=== PATIENT | male | born 1955 | race Caucasian/White ===

== ENCOUNTER 2024-01-23 19:13 | Emergency (ER) | payer OTHER, MEDICARE ==
[~2024-01-23] VITALS: Ht 157.5 cm; Wt 71.2 kg
[2024-01-23] MEDS ORDERED: FLO0.4C PO (20:27)
[2024-01-23] MEDS ORDERED: LEVO-65 PO (20:27)
[2024-01-23 21:05] VITALS: BP 120/83; PULSE 92; RESP 18; TEMP 98.7; O2SAT 98
== END 2024-01-23 21:07 | disposition home or self-care (01) ==
LOC: ER 19:14
DX: R33.9 Retention of urine, unspecified (principal)
CPT/HCPCS: 51702; 99284; A4314; A4358

== ENCOUNTER 2024-01-24 12:54 | Emergency (ER) | payer OTHER, MEDICARE ==
[~2024-01-24] VITALS: Ht 157.5 cm; Wt 71.0 kg
[~2024-01-24 12:54] MED LIST: FLO0.4C PO; LEVO-65 PO
[2024-01-24 12:59] VITALS: TEMP 97.9
[2024-01-24 13:22] LABS: CLARITY,URINE CLOUDY (Clear); COLOR,URINE RED (Yellow); UA COLLECTION TYPE FOLEY CATH
[2024-01-24 13:38] LABS: RBC,URINE TNTC /HPF (0-2); SQUAMOUS EPITHELIAL CELL,UR FEW /LPF (FEW)
[2024-01-24 13:39] LABS: BACTERIA,URINE NONE SEEN /HPF (Neg); WBC,URINE 0-4 /HPF (0-4)
[2024-01-24 15:07] LABS: BASOPHILS # (AUTO) 0.1 X10'3 (0-0.2); EOSINOPHILS # (AUTO) 0.2 X10'3 (0-0.9); EOSINOPHILS % (AUTO) 2.4 % (0-6); HEMATOCRIT 51.2 % (42.0-52.0); HEMOGLOBIN 17.1 g/dl (14.0-17.9); LYMPHOCYTES # (AUTO) 1.9 X10'3 (1.1-4.8); LYMPHOCYTES % (AUTO) 22.5 % (21-51); MEAN CORPUSCULAR HEMOGLOBIN 32.8 PG (27.0-31.0); MEAN CORPUSCULAR HGB CONC 33.3 g/dL (33.0-36.5); MEAN CORPUSCULAR VOLUME 98.5 FL (78-98); MEAN PLATELET VOLUME 7.2 FL (7.4-10.4); MONOCYTES # (AUTO) 0.9 X10'3 (0-0.9); MONOCYTES % (AUTO) 10.4 % (2-12); NEUTROPHILS # (AUTO) 5.4 X10'3 (1.8-7.7); NEUTROPHILS % (AUTO) 63.7 % (42-75); PLATELET COUNT 290 X10'3 (140-440); RED CELL DISTRIBUTION WIDTH 14.2 % (11.5-14.5); WHITE BLOOD COUNT 8.4 X10'3 (4.5-11.0)
[2024-01-24 15:26] LABS: ALANINE AMINOTRANSFERASE 24 U/L (12-78); ALBUMIN 3.5 G/DL (3.4-5.0); ALBUMIN/GLOBULIN RATIO 1.1 (1.1-1.5); ALKALINE PHOSPHATASE 79 IU/L (46-116); ANION GAP 5 (8-16); ASPARTATE AMINO TRANSFERASE 15 U/L (10-37); BILIRUBIN,TOTAL 0.7 MG/DL (0.1-1.0); BLOOD UREA NITROGEN 12 MG/DL (7-18); BUN/CREATININE RATIO 14.1 (10.0-20.0); CALCIUM 8.7 MG/DL (8.5-10.1); CHLORIDE 107 MMOL/L (99-107); CREATININE 0.85 MG/DL (0.60-1.10); GLUCOSE 100 MG/DL (70-104); SODIUM 141 MMOL/L (135-145); TOTAL CARBON DIOXIDE 29.1 MMOL/L (24-32); TOTAL PROTEIN 6.8 G/DL (6.4-8.2); eCRCL 64 ML/MIN; eGFR 90 ML/MIN
[2024-01-24] MEDS ORDERED: iohexol 300mg/ml 100ml inj. ONE (15:47)
[2024-01-24 17:04] VITALS: BP 106/65; PULSE 97; RESP 16; O2SAT 97
== END 2024-01-24 17:07 | disposition home or self-care (01) ==
LOC: ER 12:54
DX: R31.9 Hematuria, unspecified (principal); Z79.2 Long term (current) use of antibiotics; Z79.899 Other long term (current) drug therapy
CPT/HCPCS: 36415; 74177; 80053; 81001; 85025; 99285; Q9967

== ENCOUNTER 2024-01-26 14:19 | Emergency (ER) | payer OTHER, MEDICARE ==
[~2024-01-26] VITALS: Ht 157.5 cm; Wt 72.7 kg
[2024-01-26 14:21] VITALS: TEMP 98.5
[2024-01-26] MEDS: LidoCAINE 2% Topical Jelly 11mL syringe (UROJET) TOP ONE (16:21)
[2024-01-26 17:07] VITALS: BP 136/85; PULSE 96; RESP 16; O2SAT 100
== END 2024-01-26 17:09 | disposition home or self-care (01) ==
LOC: ER 14:20
DX: R33.9 Retention of urine, unspecified (principal); R31.9 Hematuria, unspecified; Z79.899 Other long term (current) drug therapy
CPT/HCPCS: 51702; 99284; A4314; A4358